=== PATIENT | female | born 2000 | race Two or more races ===

== ENCOUNTER 2024-01-03 08:50 | Emergency (ER) | payer MEDICAID, OTHER ==
[~2024-01-03] VITALS: Ht 149.9 cm; Wt 53.2 kg
[2024-01-03 09:18] VITALS: BP 135/91; PULSE 99; RESP 18; TEMP 98.6; O2SAT 97
[2024-01-03 10:36] LABS: Urine Bacteria FEW /hpf (None Seen); Urine Blood Negative /uL (Negative); Urine Clarity Clear (Clear); Urine Color Dark-Yellow (Yellow); Urine Hyaline Cast FEW /lpf (0 - 2); Urine Protein, UAD Negative (Negative); Urine Specific Gravity 1.011 (1.001-1.035); Urine Urobilinogen Normal (Negative); Urine WBC 2 /hpf (0 - 5)
[2024-01-03] MEDS ORDERED: ONDA-155 PO (11:24)
[2024-01-03] MEDS ORDERED: NITR-87 PO (11:24)
[2024-01-05 04:06] LABS: Chlamydia Trachomatis, NAA Negative (Negative); Neisseria gonorrhoeae, NAA Negative (Negative)
== END 2024-01-03 11:25 | disposition home or self-care (01) ==
LOC: ER 08:50
DX: R30.0 Dysuria (principal); R11.0 Nausea; Z88.0 Allergy status to penicillin; Z79.899 Other long term (current) drug therapy
CPT/HCPCS: 81001; 81025